=== PATIENT | male | born 1985 | race Caucasian/White ===

== ENCOUNTER 2021-02-17 10:03 | Emergency (ER) | payer OTHER ==
[2021-02-17 10:17] VITALS: BP 141/70
[2021-02-17] MEDS ORDERED: CLINDAMYCIN 150 MG CAPSULE PO STA (10:25)
--- NOTE | 2021-02-17 10:28 | ED Physician Documentation ---
History of Present Illness - Stated complaint Stated Complaint: L EYE PX - Chief complaint Chief Complaint: Heent - History obtained from History obtained from: Patient, Family - History of Present Illness Timing: How many weeks ago (1) Pain level max: 5 Pain level now: 5 - Additonal information Additional information: Patient is a 35-year-old male with left upper eyelid redness, swelling ongoing for the past week. Nothing makes it better or worse. Patient does wear glasses but no contacts. Denies any trauma. No fevers. Review of Systems Constitutional: denies: Fever, Chills Eyes: denies: Loss of vision, Decreased vision, Photophobia, Discharge Respiratory: denies: Cough GI: denies: Vomiting PD PAST MEDICAL HISTORY - Past Medical History Past Medical History: No - Past Surgical History Past Surgical History: No - Present Medications Home Medications: Ambulatory Orders Medication Instructions Recorded Confirmed clindamycin HCL [Cleocin HCl] 300 mg PO Q6H #40 cap 02/17/21 - Allergies Allergies/Adverse Reactions: Allergies Allergy/AdvReac Type Severity Reaction Status Date / Time Penicillins Allergy Hives Verified 02/17/21 10:26 - Social History Does the pt smoke?: No Smoking Status: Never smoker Does the pt drink ETOH?: No Does the pt have substance abuse?: No - Immunizations Immunizations are current?: Yes PD ED PE NORMAL - Vitals Vital signs reviewed: Yes - General General: Alert and oriented X 3, No acute distress - HEENT HEENT: Other (Left upper eyelid erythema, swelling. There is a indurated protrusion near the lid margin. Normal exam of the pupil. No conjunctival injection. No drainage.) - Neck Neck: Supple, no meningeal sign - Derm Derm: Warm and dry - Neuro Neuro: Alert and oriented X 3 Results - Vitals Vitals: Vital Signs - 24 hr 02/17/21 10:06 Temperature 36.7 C Heart Rate 88 Respiratory 16 Rate Blood Pressure 141/70 H O2 Saturation 98 Oxygen O2 Source Room air PD MEDICAL DECISION MAKING - ED course Complexity details: considered differential, d/w patient ED course: Patient with what appears to be an infected stye. Possible cellulitis as well. Therefore will place on oral antibiotics. Warm compresses for home. He will follow closely with ophthalmology. No pain with extraocular movements. No evidence of orbital cellulitis. Patient counseled regarding signs and symptoms for which I believe and urgent re-evaluation would be necessary. Patient with good understanding of and agreement to plan and is comfortable going home at this time This document was made in part using voice recognition software. While efforts are made to proofread this document, sound alike and grammatical errors may occur. Departure - Departure Disposition: Home, Self Care Clinical Impression: Preseptal cellulitis of left eye Hordeolum externum (stye) Qualifiers: Laterality: left Eyelid: upper Qualified Code(s): H00.014 - Hordeolum externum left upper eyelid Condition: Good Instructions: ED [place] Follow-Up: Devon Schmitt MD [Provider Admit Priv/Credential] - Within 3 Days Prescriptions: clindamycin HCL [Cleocin HCl] 300 mg PO Q6H #40 cap Comments: You need to ensure that you follow-up closely with an stoneworker on Friday or Friday. Your eyelid may need to be drained. We will start you on antibiotics. You also should apply warm compresses 3-4 times daily for about 10 to 15 minutes at a time, this may help the eyelid to drain. Return if you worsen. Discharge Date/Time: 02/17/21 10:45
== END 2021-02-17 10:45 | disposition home or self-care (01) ==
LOC: ED 10:03
DX: H00.014 Hordeolum externum left upper eyelid (principal); H00.034 Abscess of left upper eyelid
CPT/HCPCS: 99282; 99284; A9270